=== PATIENT | female | born 1980 | race Caucasian/White ===

== ENCOUNTER 2016-10-05 08:30 | Emergency (ER) | payer OTHER ==
[~2016-10-05] VITALS: Ht 152.4 cm; Wt 57.6 kg
[2016-10-05 08:35] VITALS: BP 129/85
--- NOTE | 2016-10-05 08:48 | ED UPPER/LOWER EXTREMITY COMPL ---
History of Present Illness General Chief Complaint: Upper Extremity Problem Stated Complaint: right elbow pain "hit on desk" Source: patient Exam Limitations: no limitations Vital Signs & Intake/Output Vital Signs & Intake/Output Vital Signs Date Time Temp Pulse Resp B/P Pulse O2 O2 Flow FiO2 Ox Delivery Rate 10/05 0835 96.9 95 20 129/85 99 Room Air Room Air Allergies Coded Allergies: oseltamivir (From TAMIFLU) (Severe, ANAPHYLAXIS 10/05/16) Reconcile Medications Dextroamphetamine/Amphetamine (Dextroamp-Amphetamin 20 MG Tab) 20 MG TABLET 1 TAB PO BID ADHD (Reported) Diclofenac Sodium 75 MG TABLET.DR 1 TAB PO BID PRN pain/inflammation Triage Note: PT TO ED S/P "HIT RIGHT ELBOW ON CORNER OF DESK AT WORK". PT ABLE TO MOVE R ELBOW WITH SOME PAIN, HAVING "A HARD TIME TO HOLD SOMETHING IN MY RIGHT HAND". Triage Nurses Notes Reviewed? yes : No Patient currently breastfeeds: No HPI: Patient is a 35 year old female presents complaining of right elbow pain. Patient struck her right elbow against the corner of a desk approximately 2 hours ago. Pain is currently 6/10, worsens with movement and palpation. Patient has intermittent pain radiating down her forearm. Initially had some associated parestesias, none currently. Patient took Ibuprofen prior to arrival with minimal improvement. Patient is right hand dominant. (REFUGIO MENJIVAR) Past History Travel History Traveled to [place] past 21 day No Medical History Any Pertinent Medical History? see below for history Neurological: NONE EENT: NONE Cardiovascular: NONE Respiratory: NONE Gastrointestinal: NONE Hepatic: NONE Renal: NONE Musculoskeletal: NONE Psychiatric: anxiety Endocrine: NONE Blood Disorders: NONE Cancer(s): adrenal cancer APPLICATIONS PROGRAMMER/Reproductive: NONE Influenza Vaccine: 03/02/09 Surgical History Surgical History: lumpectomy Psychosocial History What is your primary language Setswana Tobacco Use: Current Daily Use Daily Tobacco Use Amount/Type: => 5 Cigarettes daily ETOH Use: occasional use Illicit Drug Use: denies illicit drug use Family History Hx Contributory? No (REFUGIO MENJIVAR) Review of Systems Review of Systems Constitutional: Denies: chills, fever. EENTM: Reports: no symptoms. Respiratory: Denies: cough, short of breath. Cardiovascular: Denies: chest pain. Gastrointestinal/Abdominal: Denies: abdominal pain. Musculoskeletal: Reports: see HPI. Skin: Reports: no symptoms. Neurological/Psychological: Reports: see HPI. Hematologic/Endocrine: Denies: bruising, bleeding. Immunological: Denies: splenectomy. (REFUGIO MENJIVAR) Physical Exam Physical Exam General Appearance: well developed/nourished, alert, awake Head: atraumatic, normal appearance Eyes: Bilateral: normal appearance, PERRL, EOMI. Ears, Nose, Throat: hearing grossly normal Neck: normal inspection, supple, full range of motion Cardiovascular/Respiratory: no respiratory distress Peripheral Pulses: 2+ radial (R) Back: normal range of motion Shoulder Right: normal range of motion, normal inspection Elbow Right: tenderness diffuse posterior elbow, greatest over the lateral epicondyle. Full range of motion, pain increases with full extension of elbow. Hand Right: normal inspection, normal range of motion, normal sensation and capillary refill. 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 Harinder wrap placed to right elbow by nursing staff. Appears stable for discharge. (REFUGIO MENJIVAR) Diagnostic Imaging: Viewed by Me: Radiology Read. Discussed w/RAD: Radiology Read. Radiology Impression: PATIENT: ELIZABETH DAVALOS PRESENT AGE: 35 PATIENT ACCOUNT NO: [id number] : 81 LOCATION: [facility] ORDERING PHYSICIAN: REFUGIO FITZGERALD SERVICE DATE: 10/05/16 EXAM TYPE: RAD - XRY-ELBOW 3 OR MORE VIEWS, R EXAMINATION: XR ELBOW, RIGHT CLINICAL INFORMATION: Contusion rule out fracture COMPARISON: None TECHNIQUE: Four views of the right elbow. FINDINGS: Negative for acute fracture or dislocation. IMPRESSION: No fracture or dislocation right elbow DICTATED BY: ISAÍAS VILLEGAS MD DATE/TIME DICTATED:10/05/16956 FACILITY COORDINATOR:ARNULFO DATE/TIME TRANSCRIBED:10/05/16956 CONFIDENTIAL, DO NOT COPY WITHOUT APPROPRIATE AUTHORIZATION. <Electronically signed in Other Vendor System> SIGNED BY: ISAÍAS VILLEGAS MD 10/05/16 1001 (REFUGIO MENJIVAR) Departure Departure Disposition: HOME OR SELF CARE Condition: Stable Clinical Impression Primary Impression: Elbow contusion Qualifiers: Encounter type: initial encounter Laterality: right Qualified Code: S50.01XA - Contusion of right elbow, initial encounter Referrals: CHILO OM,NATASHA Odom (PCP/Family) Additional Instructions: Follow up with occupational medicine. Call today for appointment. Rest, ice for 20 minutes 4-5 times a day, wear harinder wrap for support. Departure Forms: Customer Survey Employee Industrial Accident General Discharge Information Prescriptions: Current Visit Scripts Diclofenac Sodium 1 TAB PO BID PRN pain/inflammation #15 TAB (REFUGIO MENJIVAR) PA/SHIP SELF DEFENSE SYSTEM MK1 OPERATOR Co-Sign Statement Statement: ED Attending supervision documentation- [] I saw and evaluated the patient. I have also reviewed all the pertinent lab results and diagnostic results. I agree with the findings and the plan of care as documented in the PA's/SHIP SELF DEFENSE SYSTEM MK1 OPERATOR's documentation. [X] I have reviewed the ED Record and agree with the PA's/SHIP SELF DEFENSE SYSTEM MK1 OPERATOR's documentation. [] Additions or exceptions (if any) to the PAs/SHIP SELF DEFENSE SYSTEM MK1 OPERATOR's note and plan are summarized below: [] (MELINDA MO,TASH Gleason)
[2016-10-05] MEDS ORDERED: DEXTROAMP-AMPHE20 MG PO (09:16)
--- NOTE | 2016-10-05 10:01 | RADIOLOGY REPORT ---
EXAMINATION: XR ELBOW, RIGHT CLINICAL INFORMATION: Contusion rule out fracture COMPARISON: None TECHNIQUE: Four views of the right elbow. FINDINGS: Negative for acute fracture or dislocation. IMPRESSION: No fracture or dislocation right elbow
[2016-10-05] MEDS ORDERED: DICLOFENAC SODI75 M2 PO (10:16)
== END 2016-10-05 10:30 ==
LOC: ERH 08:30
DX: S50.01XA Contusion of right elbow, initial encounter (principal); W22.03XA Walked into furniture, initial encounter; Y93.9 Activity, unspecified; Y92.9 Unspecified place or not applicable
CPT/HCPCS: 73080-RT